=== PATIENT | female | born 1945 | race Caucasian/White ===

== ENCOUNTER → 2025-05-26 11:20 | Outpatient (REF) | payer OTHER, MEDICARE, SELFPAY | LOC: RAD 11:20 | PROVIDERS: ATTENDING PHYSICIAN Surgery; FAMILY PHYSICIAN Internal Medicine | DX: R31.9 Hematuria, unspecified (principal) | CPT/HCPCS: 74178; Q9967 ==

== ENCOUNTER 2025-08-20 09:19 | Inpatient (IN) | payer MEDICARE, OTHER, SELFPAY ==
[2025-08-20] VITALS (57 sets, daily range): BP systolic 80–130; BP diastolic 43–100; BMI 24.9
--- NOTE | 2025-08-20 06:49 | ED.GENMED ---
History of Present Illness
General
Chief Complaint: Fever
Source: ambulance crew
Time Seen by Provider: 08/20/25 06:47
History of Present Illness
History of Present Illness:
This patient is an 79-year-old female presents emergency department via EMS after staff in the morning at the [facility] noted that patient appeared to be altered. Upon their arrival, patient was noted to be having rigors, associated with a temp
of 104.2, hypoxia to 90%, tachycardia at 140, with a blood pressure of 100/70. Patient was given 300 cc of normal saline on transport and 6 L of oxygen was applied with relief of her hypoxia. History is unavailable from patient given her condition
and dementia.
Past History
Past History
ED Past Medical History: HTN and Other (Dementia, DVT)
Social History
Tobacco: Other (Unable to obtain)
Alcohol: Other (Unable to obtain)
Living: [facility]
Employment: Not employed
Phy Exam
Physical Exam
Physical Exam:
GENERAL: Awake but eyes closed, in no apparent distress
EYE: pupils equal and reactive, no photophobia
NECK: Supple, no significant adenopathy.
ENT: o/p clr, mm extremely dry, no stridor, no drool
CARDIAC: Regular rate and rhythm, tachycardic.
LUNGS: Equal breath sounds bilaterally, no acute respiratory distress, no wheezes/rales, rhonchi noted bilaterally
ABDOMEN: Soft, without focal tenderness, no r/g
NEUROLOGICAL: Awake but eyes closed, uncooperative with formal neurological exam, no facial droop
SKIN: Warm and dry, skin intact.
MUSCULOSKELETAL: No edema, well perfused.
PSYCH: Nonverbal
Sepsis
Sepsis Screening
Sepsis Assessment: Severe Sepsis
Sepsis Screening: Hypotension
Sepsis Screen
Sepsis Screen: Severe Sepsis
Date: 08/24/25
Time: 01:06
Course
Orders/Labs/Results
Orders:
Orders
08/20/25 06:47
Cardiac Monitoring- Treatment ONCE
0.9% Sodium Chloride 1000 ml [Nss] 1,000 ml IV BOLUS
Acetaminophen [Tylenol/Feverall] 650 mg RECTAL NOW STA
O2 Therapy [RESP] Urgent
Nasal Cannula Liter Flow: 2 LPM
Titrate/Wean O2 to maintain O2 sat greater than (%): 95
Pulse Ox/cont/shift [RESP] Urgent
Quantity: 1
08/20/25 06:48
Electrocardiogram (*1) Urgent
Reason for Study: Other
Other Reason for Exam: sepsis
EKG- Treatment ONCE
CR Chest - 2 Views Urgent
Comment:
Reason For Exam: fever, hypoxia
08/20/25 06:57
COVID-19 Antigen Urgent
Source: Nasal Swab
Complete Blood Count/With Diff Urgent
Comprehensive Metabolic Panel Urgent
Lactic Acid Q4H
Comment: CANCEL 2nd LACTIC ACID IF 1st LACTIC ACID IS LESS THAN 2
Magnesium Urgent
Comment: ADD ON
Phosphorus Urgent
Comment: ADD ON
Troponin I Urgent
Urinalysis Reflex To Culture Urgent
Date Specimen was Collected: 08/20/25
Time Specimen was Collected: 06:55
Urine Microscopic Reflex Cult Urgent
Blood Culture Q30M
LUI Source: Blood/Venous
Specimen Description:
Influenza A+B Rapid Molecular Urgent
LUI Source: Nasal Swab
Specimen Description:
Urine Culture Urgent
LUI Source: U
Specimen Description:
Date Specimen was Collected: 08/20/25
Time Specimen was Collected: 06:55
08/20/25 07:11
Blood Culture Q30M
LUI Source: Blood/Venous
Specimen Description:
08/20/25 07:15
0.9% Sodium Chloride 1000 ml [Nss] 1,000 ml IV BOLUS
08/20/25 08:29
CefTRIAXone [Rocephin] 1,000 mg IV NOW STA
08/20/25 08:54
Admit/Transfer Patient As Directed
Co-Sign Provider:
Level of Care: Inpatient admission
Assign to:: ICU
Physician / Group: Hospitalists
Diagnosis: Severe sepsis
Reason for Hospitalization: Severe sepsis
Expected length of stay greater than two midnights?: Yes
ELOS- Estimated Length of Stay in days: 3
I certify the patient meets the requirements for IP care: Yes
08/20/25 08:57
PRN Pain Medication Management As Directed
May give lesser potent ordered pain med per pt: Yes
preference::
Protocol:: Medication orders for pain may be administered in a
manner that supports deferring to patient preference
when the pt is:
- Requesting an ordered lesser potent pain medication.
Least to most potent pain medications are defined
as: acetaminophen < NSAID < tramadol < opioids
(morphine, oxycodone, hydromorphone).
- Requesting a lesser dose of the same medication IF
ORDERED.
- Requesting a less intrusive route of administration
if both routes are prescribed by the provider (PO <
IV).
08/20/25 09:00
Abdomen/Pelvis w/wo Contrast CT [CT Abd/pelvis W/wo Iv Cont] Urgent
Comment:
Reason For Exam: Urosepsis
08/20/25 09:01
Code Status As Directed
Resuscitation Status: Full Code
08/20/25 Lunch
NPO
Allow oral meds: No
Allow clear liquids: Sips of Clears
08/20/25 10:31
Acetaminophen [Tylenol/Feverall] 650 mg RECTAL Q4HPRN PRN
Acetaminophen [Tylenol] 650 mg PO Q4HPRN PRN
Acetaminophen [Tylenol] 650 mg PO Q4HPRN PRN fever
Acetaminophen [Tylenol] 650 mg PO Q6HPRN PRN mild pain
08/20/25 10:31
Activity As Directed
Activity Level: As Tolerated
Intake/ Output As Directed
Frequency: Per unit guidelines
Vital Signs As Directed
Frequency: Per unit guidelines
Weight As Directed
Frequency: Daily
O2 Therapy [RESP] Routine
Nasal Cannula Liter Flow: 4 LPM
Titrate/Wean O2 to maintain O2 sat greater than (%): 92
08/20/25 11:19
Lactic Acid Q4H
Comment: repeat q4 hours x 4 or until less than 2 mmol/L
08/20/25 11:35
Arterial Blood Gas Urgent
%Oxygen/Room Air: room air
08/20/25 20:00
Apixaban [Eliquis] 2.5 mg PO BID
Abnormal Lab Results
08/20/25
06:57
MCH 26.7 L pg
(27.0-31.0)
MCHC 31.9 L g/dL
(33.0-37.0)
RDW 15.1 H %
(11.5-14.5)
MPV 10.5 H fL
(7.4-10.4)
Abs Immat Gran (auto) 0.1 H 10^3/uL
(0-0.05)
Absolute Neuts (auto) 10.1 H 10^3/uL
(1.4-6.5)
Absolute Lymphs (auto) 0.5 L 10^3/uL
(1.2-3.4)
Absolute Monos (auto) 0.0 L 10^3/uL
(0.1-0.6)
Immature Gran % 0.7 H %
(0-0.5)
Neutrophils % 94.2 H %
(42.2-75.2)
Lymphocytes % 4.5 L %
(20.5-51.1)
Monocytes % 0.4 L %
(1.7-9.3)
Chloride 115 H mmol/L
(98-107)
Carbon Dioxide 16 L mmol/L
(22-30)
BUN 19 H mg/dl
(7-17)
Glucose 130 H mg/dl
(70-99)
Lactic Acid 7.1 H* mmol/L
(0.7-2.0)
Total Bilirubin 1.4 H mg/dl
(0.2-1.3)
AST 48 H U/L
(14-36)
Troponin I 0.201 H* ng/ml
Total Protein 6.2 L g/dl
(6.3-8.2)
Albumin 2.9 L g/dl
(3.5-5.0)
Ur Occult Blood Reflex 4+ A
(Negative)
Urine Nitrite (Reflex) Positive A
(Negative)
Urine Urobilinogen 2+ A
(Neg - 1+)
Leukocyte Esterase Rfl 3+ A
(Negative)
Urine WBC (Reflex) >100 A /HPF
(0-5)
Urine Albumin (Reflex) 3+ A
(Neg - Trace)
08/20/25 06:57
08/20/25 06:57
Vital Signs
Initial and Last Documented VS:
Initial Vital Signs
Temp Pulse Resp BP Pulse Ox
104.3 F H 144 27 107/66 91
08/20/25 06:41 08/20/25 06:41 08/20/25 06:41 08/20/25 06:41 08/20/25 06:41
Last Documented Vital Signs
Temp Pulse Resp BP Pulse Ox
98.2 F 80 22 116/71 94
08/23/25 23:24 08/23/25 23:24 08/23/25 23:24 08/23/25 23:24 08/23/25 23:24
*Pulse Oximetry
Patient hypoxic: no
*Critical Care Note
Total Time (30-74mins, 75-104mins- exclusive of procedures): 35
Update Note
Update Note:
Patient presents to the Emergency Department with __altered mental status
Number and Complexity of Problems Addressed at the Encounter
� Chronic conditions affecting care:
� Acute Exacerbation and/or Progression of Chronic Illness:
� Differential Diagnosis includes: But not limited to electrolyte disorder, sepsis, UTI, pneumonia, COVID, flu, dehydration, etc. etc.
Amount and/or Complexity of Data to be Reviewed and Analyzed
� I performed an independent evaluation of and my interpretation is:
EKG:read by me, afib with rvr, nonspec T wave anl, RBBB
CT:
Xrays:cxr read by me nad
Laboratory Studies:covid/flu negative, wbc nl, L shift noted, markedly elevated alctic acid, JONATHAN, nonspec trop evelatino (likley demand ischemia)
Other:
� Review of other/old records reveals: snf records reviewed by me at bedside
� Clinical information was obtained by an independent historian: Paramedics who are at bedside
� Prescriptions/Medications Considered but not given:
� Further testing considered but not performed:
Risk of Complications and/or Morbidity or Mortality of Patient Management
� Social determinants of health affecting care:
� Discussion with other providers (PCP, Hospitalists, Consultants, etc):
� Escalation of care including admission/observation vs risk of discharge considered: 8:30 AM repeat assessment, systolic blood pressure 102, MAP 80, IV fluids running. Workup consistent with urosepsis, IV antibiotics started,
hospitalist made aware.
ED Attending Note
-
Portions of this chart may have been created with voice recognition software.� Occasional wrong word or��sound alike� substitutions may have occurred due to the inherent limitations of voice recognition software.
Discharge Plan
Departure
Patient Disposition: Admit
Date of Disposition: 08/20/25
Time of Disposition: 08:31
Presentation/result/management discussed w/ accepting MD/DO: Hospitalist
Condition: Fair
Discharge Problem:
urosepsis
Interventions
Interventions:
*Risk Screen - Suicide Last Done: 08/20/25 06:41
*General Assessment Last Done: 08/20/25 06:41
*Neglect/Abuse Screening Last Done: 08/20/25 06:41
*ED- Fall Risk Assessment Last Done: 08/20/25 06:41
*ED Influenza Vaccine History Last Done: 08/20/25 06:41
*Nursing Disposition Last Done: 08/20/25 10:39
ED- Neurological Assessment Last Done: 08/20/25 07:41
ED-Skin Assessment Last Done: 08/20/25 07:41
Discharge Date and Time
Discharge Date/Time: 08/20/25 10:40
[2025-08-20] MEDS: TYLENOL/FEVERALL 650 MG RECTAL (07:00)
[2025-08-20] MEDS: NSS 1000 IV ×2 (07:02→07:27)
[2025-08-20 07:26] LABS: Hematocrit 42.6 % (37.0-47.0); Hemoglobin 13.6 g/dL (12.0-16.0); Mean Corp Hgb Conc. 31.9 g/dL (33.0-37.0); Mean Corpuscular Volume 83.7 fL (81.0-99.0); Platelet Count 324 10^3/uL (130-400); Red Cell Dist. Width 15.1 % (11.5-14.5)
[2025-08-20 07:35] LABS: Urine Character Cloudy (Clear)
[2025-08-20 07:36] LABS: AST (SGOT) 48 U/L (14-36); Albumin 2.9 g/dl (3.5-5.0); Alkaline Phosphatase 77 U/L (38-126); Blood Urea Nitrogen 19 mg/dl (7-17); Calcium 8.4 mg/dl (8.4-10.2); Carbon Dioxide 16 mmol/L (22-30); Chloride 115 mmol/L (98-107); Glucose 130 mg/dl (70-99); Potassium 3.8 mmol/L (3.5-5.1); Sodium 144 mmol/L (135-145); Total Protein 6.2 g/dl (6.3-8.2); eGFR > 60.00
[2025-08-20 07:37] LABS: COVID-19 Antigen Negative (Negative)
[2025-08-20 07:55] LABS: ALT (SGPT) 29 U/L (0-35)
[2025-08-20 08:01] LABS: Nucleated Red Blood Cells % 0.3 %
[2025-08-20 08:03] LABS: Troponin I 0.201 ng/ml
[2025-08-20 08:18] LABS: Urine White Cell >100 /HPF (0-5)
[2025-08-20] MEDS: ROCEPHIN 1000 MG IV (08:35)
--- NOTE | 2025-08-20 09:00 | CM ---
Patient seen at bedside in ED. Patient with Dementia from [facility]. CM called and left for admissions requesting information about status and prior level of functioning. Patient appears to have been at the facility since at least 07/11.
Awaiting clarification from facility, plan is for patient to return to SNF when medically appropriate. CM will continue to follow for discharge planning needs.
Plan; return to SNF when medically appropriate.
--- NOTE | 2025-08-20 09:21 | HPS.HSE ---
Addendum entered and electronically signed by Nitza Barrios MD 08/20/25 13:26:
Correction Hep Subc dvt ppx for now, to change back to Eliquis when able to tolerate PO
Addendum entered and electronically signed by Nitza Barrios MD 08/20/25 13:12:
I interviewed and examined the patient. Discussed with Dr. Sen and agree with findings and plan as documented in note with exceptions/additions as follows:
79F Citizen Of [place] Dementia nonverbal at baseline, pafib on Eliquis, hx DVT/PE, from [facility], sent in for evaluation AMS/unresponsiveness. Eval concerning for hypoxia and severe sepsis vs septic shock 2/2 urinary tract infection likely d/t known
renal calculi. Patient unable to contribute any hx. All of history from records report. Discussed with patient's legal guardian [place] and confirmed Full Coded status.
Physical Exam
General: No Apparent Distress and Comfortable
HEENT: PERRLA; No Moist mucous membranes
Respiratory: Clear to auscultation b/l, requiring 6L nasa cannula
Cardiac: S1/S2, Regular Rhythm and Tachycardia; No Murmur, Rub or Gallop
GI: Soft, Non Tender, Non Distended and Normal Bowel Sounds
Musculoskeletal: No Clubbing, No Cyanosis and No Edema
Skin: Warm and Dry
Neuro: Lethargic difficult to arouse, nonverbal, responds to noxious stimuli, eye tracking
Psych: Calm
# Septic shock vs Severe Sepsis 2/2 UTI
# History of bilateral hydroureteronephrosis with right-sided nephrolithiasis-
#Severe Lactic Acidosis
# Acute hypoxic respiratory failure
#Dementia
ICU admit
Levopressor prn goal MAP 65
Trend Lactate
IVF support
Empiric Zosyn
Follow cultures
NPO for now, including oral meds, pending improvement in mental status
Hep gtt for afib while strict NPO
Oxygen supplementation as necessary.
Urology and associate biological sales eval appreciated
Monitor for delirium, non-violent restraints prn, consider precedex gtt if significant agitation develops
Total Critical Care Time__55___ minutes. I was immediately available to the patient and staff. I personally examined, reviewed labs, diagnostic images/reports, interpretations, treatment plans, discussed patient care with other providers and
family or caregivers (if patient is unable to make decisions), entered orders as appropriate and documented the medical record.
Original Note:
Family Physician
-
Family Physician: Stephany Davis, [facility]
Chief Complaint
-
Acute change in mental status
History of Present Illness
79-year-old, primarily non-Turkish speaking (Citizen [place]) female, nonverbal at baseline with history of dementia, A-fib with RVR, DVT known right renal calculus with mild hydroureteronephrosis is brought to the ER by EMS from [facility]
facility-[facility] for evaluation of acute onset change in the mental status. I called the [facility], and the nurse reports finding the patient in confusion and baseline mental status change after which she called the EMS. Upon arrival in
the ER, she was noted to have rigors with a temperature of 104, blood pressure of 100/70, tachycardia at 140, tachypnea 24, 90% on room air.
In the ER, patient was given 6 L nasal cannula flow, and 2 L of NS boluses along with Tylenol and ceftriaxone. Currently patient is tachycardic, tachypneic with a temperature of 104.3, satting 97% on 6 L nasal cannula flow with a blood pressure of
89/64, MAP at 72.
Unable to obtain much history from the patient.
Medical History
Past Medical History
Past Medical History: Reports Other (A-fib with RVR, on anticoagulation, DVT, dementia.)
Past Surgical History: Reports Other
Social History
Unable to obtain full social history at this time due to: Other (Patient is nonverbal, has language barrier and demented.)
Family History
Family History: Not pertinent
Allergies / Home Medications
Allergies reflects when Allergies were last updated in [employer]
Home Medications with original date entered in [employer]
Allergy/Medication List:
Allergies
Allergy/AdvReac Type Severity Reaction Status Date / Time
No Known Allergies Allergy Unverified 06/30/23 11:13
Home Medications
acetaminophen 325 mg tablet 650 mg PO Q4HPRN PRN fever 06/30/23
acetaminophen 325 mg tablet (Tylenol) 650 mg PO Q6HPRN PRN mild pain 08/20/25
apixaban 2.5 mg tablet (Eliquis) 2.5 mg PO BID 08/20/25
Review of Systems
-
Unable to obtain full review of systems at this time due to: Other (Dementia, acuity, language barrier and nonverbal.)
Physical Exam
Vital Signs
Vital Signs
Temp Pulse Resp BP Pulse Ox
104.3 F H 116 25 89/64 97
08/20/25 06:41 08/20/25 08:30 08/20/25 08:30 08/20/25 08:30 08/20/25 08:30
Physical Exam
General: No Apparent Distress and Comfortable
HEENT: PERRLA; No Moist mucous membranes
Respiratory: Clear (In bilateral upper lobes) and Rhonchi (In bilateral lower lobes, expiratory.); No Wheezes or Rales
Cardiac: S1/S2, Regular Rhythm and Tachycardia; No Murmur, Rub or Gallop
GI: Soft, Non Tender, Non Distended and Normal Bowel Sounds
Genito-urinary: Deferred by me
Musculoskeletal: No Clubbing, No Cyanosis and No Edema
Skin: Warm and Dry
Neuro: No Awake, Alert or Oriented
Psych: Calm
Laboratory Results
-
08/20/25 06:57
08/20/25 06:57
Laboratory Results
Lactic Acid 7.1 mmol/L (0.7-2.0) H* 08/20/25 06:57
Total Bilirubin 1.4 mg/dl (0.2-1.3) H 08/20/25 06:57
AST 48 U/L (14-36) H 08/20/25 06:57
ALT 29 U/L (0-35) 08/20/25 06:57
Alkaline Phosphatase 77 U/L (38-126) 08/20/25 06:57
Troponin I 0.201 ng/ml H* 08/20/25 06:57
Data Reviewed
-
CT Scan: Other (Pending)
Lab Data: Labs Reviewed by me, Discussed with Physician and Discussed with Patient
Old Records: Reviewed
Impression/Plan
-
IMPRESSION: 79-year-old primarily non-Turkish speaking, nonverbal female with PMHx significant for dementia, mild hydroureteronephrosis, A-fib,? DVT, on reduced dose Eliquis (unclear) presents to the emergency room from [facility]
([facility]) for evaluation of new onset confusion. Patient is diagnosed to be in sepsis and is admitted to ICU.
PLAN:
# Septic shock-
Hypotensive, tachycardic, tachypneic, fevers of 104.3, lactate levels >4.
Likely secondary to complicated UTI.
No leukocytosis, acidotic with CO2-16. Obtain ABG.
Chest x-ray showed no evidence for pneumonia, mild cardiomegaly noted.
Blood cultures x 2, urine cultures pending.
UA greater than 100 WBCs, nitrites and leukocyte positive.
MAP-holding between 63-70, start the patient on Levophed if MAP less than or equal to 65
ICU consulted, admit the patient to ICU.
Per LTC, patient is a full code.
Started the patient on IV maintenance fluids-NSS@100, and Zosyn.
Follow lactate levels, blood cultures, urine cultures and temperature curve.
Tylenol for fever as needed.
# Acute hypoxic respiratory failure-
Suspect secondary to sepsis
Currently on 6 L nasal cannula flow
Wean off oxygen as tolerated. Acidotic, obtain ABG.
# History of bilateral hydroureteronephrosis with right-sided nephrolithiasis-
Obtain CT abdomen and pelvis with and without contrast.
Urology-patient underwent cystoscopy, negative for any urothelial mass.
CT results Staghorn calculus in the right kidney with suspicion for superimposed infection/proximal right ureteritis. No hydronephrosis.
Consult urology, appreciate inputs
# A-fib with RVR-
Not on any rate control, unclear if this is new.
Currently on reduced dose Eliquis.
Does not meet criteria (age greater than 80, body weight-63, serum creatinine-0.8)
# QTc prolongation on EKG-
QTc at 535.
Avoid QT prolonging agents.
Obtain EKG in the am for QTc prolongation.
# Dementia -
Monitor for ICU delirium, and
Olanzapine HS as needed.
# DVT prophylaxis-
Continue home dose Eliquis.
# CODE STATUS-
Full code.
--- NOTE | 2025-08-20 10:16 | CONS.URO ---
Consultation
-
Date/Time Consultation Requested: 08/20 1014
Date/Time Consultation Performed: 08/20 1016
Requesting Provider: Hospitalist
Performing Provider: Megan
Reason for Consultation: cUTI, non-obstructing large right renal stone
Medical History
History of Present Illness
79F (non-Icelandic speaking) and non-verbal at baseline w/ dementia presents from [facility] w/ change in mental status.
Patient febrile to 104F w/ rigors, tachycardia, tachypnea in ED.
Past Medical History
Past Medical History: Arrhythmia (afib w/ RVR on Eliquis) and Other (DVT, dementia)
Past Surgical History: None
Social History
Unable to obtain full social history at this time due to: Dementia and Acuity
Alcohol: None
Drug: None
Personal: Single
Living: [place]
Family History
Family History: Reviewed & Not Pertinent
Allergies/Home Medications
Allergies
Allergy/AdvReac Type Severity Reaction Status Date / Time
No Known Allergies Allergy Unverified 06/30/23 11:13
Home Medications
�Medication �Instructions �Recorded �Confirmed �Type
acetaminophen 325 mg tablet 650 mg PO Q4HPRN PRN fever 06/30/23 08/20/25 History
acetaminophen 325 mg tablet 650 mg PO Q6HPRN PRN mild pain 08/20/25 08/20/25 History
(Tylenol)
apixaban 2.5 mg tablet (Eliquis) 2.5 mg PO BID 08/20/25 08/20/25 History
Review of Systems
-
Unable to obtain full review of systems at this time due to: Dementia and Acuity
History Source: [facility] and Transfer Record
A 12 point Review of Systems was completed except as noted: Yes
Physical Exam
Vital Signs
Vital Signs
Temp Pulse Resp BP Pulse Ox
104.3 F H 106 31 94/60 95
08/20/25 06:41 08/20/25 09:45 08/20/25 09:45 08/20/25 09:44 08/20/25 09:45
Lab / Testing Results
Laboratory Results
08/20/25 06:57
08/20/25 06:57
Physical Exam
General: Well Developed, Well Nourished and No Apparent Distress
HEENT: Normocephalic and Anicteric
Respiratory: Non Labored Respirations
Cardiac: S1/S2
Breast: Deferred by me
GI: Soft, Non Tender and Non Distended
Rectal: Deferred by Provider
Musculoskeletal: No Edema
Skin: Warm and Dry
Neuro: Sedated and Other (dementia, non-verbal)
Hematologic/Lymphatic: No Lymphadenopathy
Psych: Confused and Apparent Dementia
Assessment / Plan
-
Urosepsis
cUTI w/ ascending right infection
Partial right staghorn stone (stable)
Large right renal cyst (stable)
Of note, patient underwent office cystoscopy (06/17/25) => NO discrete urothelial lesions or bladder tumors - patchy cystitis and trabeculated bladder noted.
CTAP w/wo IV contrast => 4 x 2 cm non-obstructing right partial staghorn stone, suspicion for superimposed infection/proximal right ureteritis. No hydronephrosis.
Small filling defect in the right posterior urinary bladder lumen.
WBC WNL
Cr WNL
UA grossly indicative of UTI
UCx pending
- IV antibiotics pending Cx data
- No uro-surgical intervention indicated for non-obstructing large right renal stone burden
- Recent outpatient cystoscopy in 05/2025 demonstrated no evidence of bladder cancer
D/w Hospital Medicine.
Data Reviewed
-
Total Time Spent with Patient (in minutes): 25
CT Scan: Image personally visualized and interpreted, Report Reviewed by Me and Discussed with Physician
Lab Data: Labs Reviewed and Discussed with Physician
Old Records: Reviewed
--- NOTE | 2025-08-20 10:28 | CON.INTV ---
Consultation
Consultation Request
Date/Time Consultation Requested: 08/20/2025 10:00
Date/Time Consultation Performed: 08/20/2025 10:30
Requesting Provider: Solange Sen MD (Resident)
Performing Provider: Олег Yates DO (Resident); Luis Daniel Donis MD
Reason for Consultation: Septic Shock
Medical History
-
Chief Complaint: Confusion, Altered Mental Status
History of Present Illness:
Heather Lamb is a 79F w/ baseline PMHx of dementia, A/fib, known right renal calculus, and mild hydroureteronephrosis who presented to ED earlier this morning from the [facility] due to acute change in mental status.
Patient had confusion at baseline mental status this morning after which EMS was called by the nursing facility. Per EMS transfer form, patient had a temperature of 104.2, heart rate 145, respiratory rate of 32, BP of 96/65. Upon arrival to the
Emergency Department patient presented with rigors.
ED COURSE
Presented with tachycardia to 140, tachypnea 24, saturation 90% on room air, blood pressure 96/65, temperature 104.
In ER, patient started on 6 L nasal cannula flow, given fluid resuscitation with 2 L of normal saline boluses, 1 dose of ceftriaxone, Tylenol for fever.
WBC 10.7 with neutrophilic predominance.
CMP shows anion gap metabolic acidosis (13) with hyperchloremia. Mild BUN elevation.
Lactic acid 7.1.
Elevated total bilirubin of 1.4. Mild transaminitis AST 48.
Troponin 0.201, EKG showing atrial fibrillation with RVR, RBBB
UA positive for infectious picture. UCX sent. BCx sent.
Patient admitted to the ICU for sepsis, possible septic shock. Additional history is unable to be obtained secondary to altered mental status.
Past Medical History
Past Medical History: Other (dementia, A/fib, known right renal calculus, and mild hydroureteronephrosis)
Family History
Family History: Unable to Obtain
Allergies / Home Medications
Allergies
Allergy/AdvReac Type Severity Reaction Status Date / Time
No Known Allergies Allergy Unverified 06/30/23 11:13
Home Medications
�Medication �Instructions �Recorded �Confirmed �Last Taken �Type
acetaminophen 325 mg tablet 650 mg PO Q4HPRN PRN fever 06/30/23 08/20/25 Unknown History
acetaminophen 325 mg tablet 650 mg PO Q6HPRN PRN mild pain 08/20/25 08/20/25 Unknown History
(Tylenol)
apixaban 2.5 mg tablet (Eliquis) 2.5 mg PO BID 08/20/25 08/20/25 Unknown History
Review of Systems
-
Unable to Obtain full review of systems at this time due to: Dementia and Language Barrier
Vitals / Labs / Diagnostic Testing
Vital Signs
Temp Pulse Resp BP Pulse Ox
104.3 F H 106 31 94/60 95
08/20/25 06:41 08/20/25 09:45 08/20/25 09:45 08/20/25 09:44 08/20/25 09:45
Lab Data
08/20/25 06:57
08/20/25 06:57
Microbiology
08/20/25 06:57 Nasal Swab Influenza Types A & B (ALPHONSE) - Final
Negative for Influenza A & B, NAAT
Negative results must be combined with clinical observations
and patient history.
Nucleic Acid Amplification test (NAAT)performed on the
[employer] platform.
Diagnostic Testing:
CXR (08/20): No acute pulmonary processes within limitations of the provided projections. Cardiomegaly.
CT abdomen pelvis (08/20): Staghorn calculus in the right kidney with suspicion for superimposed infection/proximal right ureteritis. No hydronephrosis. Small filling defect in the right posterior urinary bladder lumen. Large volume stool in the
rectum and distal sigmoid colon suggesting constipation.
Physical Exam
-
HEENT: Normocephalic and Anicteric
Cardiovascular: S1/S2, Regular Rhythm and Other (Tachycardia, warm extremities, no lower extremity edema.)
Respiratory: Clear and Non-Labored Respirations
GI: Soft
Neurology: Other (Somnolent.)
Skin: Warm
Assessment
-
Heather Lamb is a 79F presenting from [facility] w/ a PMHx of dementia, A/fib, known right renal calculus, and mild hydroureteronephrosis who was found to be in a state of altered mental status this morning by correction staff and
presented to the emergency department with a fever of 104 and in septic shock with CT of the abdomen pelvis showing staghorn calculus in the right kidney with suspicion for superimposed infection/right ureteritis as the potential source. Patient was
admitted to the ICU for septic shock.
1. Sepsis 2/2 pyelonephritis superimposed on staghorn calculus and right ureteritis
- Initial Lactate 7.1. Repeat Lactate in 2 hours after initial.
- qSOFA on arrival of 3
- UA positive, CT Abd/Pelv w/ radiographic evidence of staghorn calculus with superimposed infection/ureteritis
- Patient given one dose of Ceftriaxone, and started on Zosyn.
- Follow BCx and UCx. Tailor abx based on sensitivities/bugs.
- Patient given 2L NS in ED. Requirement @ 63kg being 1.9 L. Will transition to maintainence on LR in setting of hyperchloremia.
- Levophed ordered, but not given yet in ED. Goal MAP > 65.
- PRN Tylenol for fever.
2. Anion Gap Metabolic Acidosis
- CO2 16, GAP 13.
- Obtain ABG or VBG.
3. Acute Hypoxic Respiratory Failure
- On 6L NC in ED.
- Obtain ABG.
4. Atrial fibrillation with RVR
- Home med (Eliquis 2.5 mg p.o. twice daily)
- Currently not on rate control medication.
- HR 105 at time of exam.
5. Baseline Dementia
- Worsened altered mental status likely secondary to infection/sepsis (baseline unknown to us)
- Monitor for ICU delirium
- Monitor electrolytes and replete as appropriate
- Environmental hygiene and regular reorientation once awake
Data Reviewed
-
EKG: Tracing personally visualized and interpreted and Report reviewed by me
Radiology: Image personally visualized and interpreted and Report reviewed by me
CT Scan: Image personally visualized and interpreted and Report reviewed by me
Labs: Labs reviewed by me
Critical Care Time (in minutes): 45
[2025-08-20 11:09] LABS: Glucose - Point of Care 108 mg/dl (70-99)
[2025-08-20] MEDS: ZOSYN 50 IV ×3 (11:18→22:08)
[2025-08-20] MEDS: LR 1000 IV ×2 (11:18→21:10)
[2025-08-20] MEDS: LEVOPHED 250 IV ×2 (11:27→20:21)
[2025-08-20 11:54] LABS: Magnesium 1.8 mg/dl (1.6-2.3)
--- NOTE | 2025-08-20 12:00 | PTCARENOTE ---
Received pt. from ER via stretcher into ICU rm [id number]; pt. max assisted from stretcher to bed. Complete hygiene provided. Baseline dementia; pt. nonverbal; does not follow commands; SR w BBB w parox afib on monitor. Spo2 100% on 4LNC, weaned to 2L
and tolerated. +BS, abd soft/round; NPO d/t mentation. Inc b/b. # 20 R wrist patent, dressing c/d/i; #18 L FA w LR @ 100mL/hr and IV abx; levo gtt initiated to keep MAP >65- see flow sheet. Pt. repositioned per protocol; bed alarm active.
[2025-08-20 12:10] LABS: INR 1.94; PT 22.6 Sec (11.4-14.6)
[2025-08-20 12:10] LABS: B.E. -2.4 mmol/L; HCO3 20.6 mmol/L (21-28); O2 Saturation % 99.2 % (94-98); PCO2 29 mmHg (32-35); PO2 99 mmHg (83-108)
[2025-08-20 12:11] LABS: APTT 37.9 Sec (23.4-35.0)
[2025-08-20] MEDS: MAGNESIUM SULFATE 100 IV (12:42)
--- NOTE | 2025-08-20 14:20 | WOUNDNOTE ---
[facility] RN note: Patient admitted with sepsis, UTI. Patient admitted from [facility].
See H&P for complete history.
PMH: dementia, a fib (Eliquis), DVT/PE.
Wound Location and type/assessment: Patient admitted with: stage 3 linear sacral pressure injury, bilateral sacral/buttocks chafed skin, healing stage 2 pressure injuries. Back stage 2 pressure injury. Blanchable elbows and heels. Upper ear creases
mild red.
Appetite: NPO.
Pressure redistribution devices in place: Centrella Max air bed. Patient is immobile.
Plan: Silicone border foam changed on back. Sacral shaped silicone border foam applied to sacrum after malgorzata care given (patient incontinent of small soft brown stool). Protective elbow and heel foams maintained. Patient turned to R semi side lying
position with help from ALO Laboy. Heels off bed with pillow. t/c SPD and ordered Foot Waffle boots.
Will confirm orders with Dr. Barrios and discussed with ALO Laboy.
Care plan to be updated and will follow as needed.
Note to case management of equipment requested for discharge: Air mattress if not already in place.
Recommend follow up with wound care companion or at wound care center upon discharge.
--- NOTE | 2025-08-20 14:43 | WOUNDNOTE ---
SACRAL/BUTTOCKS (back toward bottom of photo)
[2025-08-20] MEDS: HEPARIN 5000 UNITS SC ×2 (16:06→23:27)
[2025-08-20 16:38] LABS: Troponin I 0.407 ng/ml
[2025-08-20] MEDS: LR 500 IV (16:55)
--- NOTE | 2025-08-20 21:00 | PTCARENOTE ---
Assumed care of patient at 1900. On levo, LR, and 2 liters NC. Nonverbal and unable to follow commands. CPOT scale negative. Incontinent of urine- purewick replaced and CHG bath completed. Will continue to monitor.
[2025-08-20 21:46] LABS: Troponin I 0.324 ng/ml
[2025-08-21] VITALS (61 sets, daily range): BP systolic 87–120; BP diastolic 47–85; BMI 25.0
--- NOTE | 2025-08-21 | PTCARENOTE ---
No changes from previous assessment. Weaned from 2 liters 02 to room air.
[2025-08-21] MEDS: ZOSYN 50 IV ×2 (04:02→10:16)
[2025-08-21 04:12] LABS: ALT (SGPT) 24 U/L (0-35); AST (SGOT) 41 U/L (14-36); Albumin 2.4 g/dl (3.5-5.0); Alkaline Phosphatase 87 U/L (38-126); Blood Urea Nitrogen 13 mg/dl (7-17); Calcium 8.1 mg/dl (8.4-10.2); Carbon Dioxide 25 mmol/L (22-30); Chloride 116 mmol/L (98-107); Estimated Creatinine Clearance 61 ml/min; Glucose 113 mg/dl (70-99); Magnesium 2.1 mg/dl (1.6-2.3); Potassium 3.7 mmol/L (3.5-5.1); Sodium 146 mmol/L (135-145); Total Protein 5.2 g/dl (6.3-8.2); eGFR > 60.00
--- NOTE | 2025-08-21 05:09 | PTCARENOTE ---
No changes from previous assessment. Continuing to wean levo- see med titration worklist for details.
[2025-08-21 05:32] LABS: Hematocrit 34.3 % (37.0-47.0); Hemoglobin 11.0 g/dL (12.0-16.0); Mean Corp Hgb Conc. 32.1 g/dL (33.0-37.0); Mean Corpuscular Volume 84.3 fL (81.0-99.0); Platelet Count 343 10^3/uL (130-400); Red Cell Dist. Width 15.2 % (11.5-14.5)
[2025-08-21] MEDS: LR 1000 IV ×2 (06:23→18:34)
--- NOTE | 2025-08-21 06:50 | W.PN.HOSP.TC ---
Today's Communication/Plan
-
ok to downgrade if remains stable of pressor support
cont empiric abx zosyn, repeat blood cultures
cont hep subq dvt ppx for now, switch to Eliquis when able to tolerate PO
Speech eval
Assessment / Plan
Assessment / Plan
Physical Exam
General: No Apparent Distress and Comfortable
HEENT: PERRLA; No Moist mucous membranes
Respiratory: Clear to auscultation b/l, stable respiratory status on room air
Cardiac: S1/S2, Regular Rhythm and Tachycardia; No Murmur, Rub or Gallop
GI: Soft, Non Tender, Non Distended and Normal Bowel Sounds
Musculoskeletal: No Clubbing, No Cyanosis and No Edema
Skin: Warm and Dry
Neuro: responds to physical stimuli, nonverbal noncommunicative
Psych: Calm
79F [place] Dementia nonverbal at baseline, pafib on Eliquis, hx DVT/PE, from [facility], sent in for evaluation AMS/unresponsiveness. Eval concerning for hypoxia and septic shock 2/2 urinary tract infection likely d/t known renal calculi.
Patient unable to contribute any hx. All of history from records report. Discussed with patient's legal guardian [place] and confirmed Full Coded status.
# Septic shock-
Hypotensive, tachycardic, tachypneic, fevers of 104.3, lactate levels >4.
Likely secondary to complicated UTI.
ICU admit
Chest x-ray showed no evidence for pneumonia, mild cardiomegaly noted.
Blood cultures x 2, urine cultures prelim pos follow, repeat Blood cultures
UA greater than 100 WBCs, nitrites and leukocyte positive.
empiric zosyn
wean off pressor support as tolerated, ok to downgrade if remains stable off pressors
# Acute hypoxic respiratory failure Resolved
Suspect secondary to sepsis
weaned off 6 L nasal cannula flow to room air
# History of bilateral hydroureteronephrosis with right-sided nephrolithiasis-
Obtain CT abdomen and pelvis with and without contrast.
Urology-patient underwent cystoscopy, negative for any urothelial mass.
CT results Staghorn calculus in the right kidney with suspicion for superimposed infection/proximal right ureteritis. No hydronephrosis.
Consult urology appreciated
#paroxysmal afib
# A-fib with RVR
currently sinus janine
# QTc prolongation on EKG-
QTc at 535.
Avoid QT prolonging agents.
repeat EKG
# Dementia -
Monitor for delirium, and ing
restraints prn
# DVT prophylaxis-
subc hep for now eventual restart home Eliquis when tolerating PO
# CODE STATUS-
Full code.
Total Critical Care Time__50___ minutes. I was immediately available to the patient and staff. I personally examined, reviewed labs, diagnostic images/reports, interpretations, treatment plans, discussed patient care with other providers and
legal guardian [place], entered orders as appropriate and documented the medical record.
Anticipated Discharge: 24 - 48 hours
Subjective/Interval History
-
Date of Service: August 21, 2025
remains noncommunicative, responsive to physical stimuli
Objective Data
-
Labs:
Laboratory Results
08/21/25
03:25
WBC Pending
Hgb 11.0 L
Hct 34.3 L
Plt Count 343
Sodium 146 H
Potassium 3.7
Chloride 116 H
Carbon Dioxide 25
BUN 13
Creatinine 0.6
Glucose 113 H
Calcium 8.1 L
Total Bilirubin 0.9
AST 41 H
ALT 24
Alkaline Phosphatase 87
Vital Signs:
Vital Signs
Temp Pulse Resp BP Pulse Ox
98.3 F 57 23 107/56 96
08/21/25 03:12 08/21/25 06:15 08/21/25 06:15 08/21/25 06:15 08/21/25 06:15
I&O
08/19/25 08/20/25 08/21/25
06:59 06:59 06:59
Intake Total 2927.6 / 2927.6
Output Total 900 / 900
Balance 2026.6 / 2026.
--- NOTE | 2025-08-21 08:00 | PTCARENOTE ---
Received pt @ change of shift. Pt. awake/alert; not oriented d/t baseline dementia; nonverbal. SR/sinus arrhythmia w 1st degree AVB on monitor. SpO2 94% on RA. Inc b/b. Purewick in place draining viviana urine. Complete hygiene provided and
repositioned per protocol. #18 L FA w IVF and levo gtt- see flow sheet. Bed alarm active, safe environment maintained.
[2025-08-21] MEDS: HEPARIN 5000 UNITS SC (08:25)
[2025-08-21 08:56] LABS: Nucleated Red Blood Cells % 0 %
--- NOTE | 2025-08-21 11:51 | PTCARENOTE ---
Levo gtt off @ 0809- see flow sheet; remains off and MAP >65. Pt. more alert today; HORSE RACE STARTER to bedside and diet advanced per recommendations. Hygiene provided for prn inc; repositioned per protocol. BC drawn x2 and EKG obtained this AM per orders.
Safe environment maintained.
--- NOTE | 2025-08-21 12:56 | PTOTSP ---
Dysphagia Evaluation:
Pt was made NPO due presenting w/ altered mental status. Pt presents w/ risk for aspiration/dysphagia given fluctuating mental status and PMH of dementia. However, pt has a clear CXR, no overt s/sx of aspiration at the bedside, and baseline diet as
Mechanical Soft, Thins. ST recommending IDDSI 6 Soft & Bite Size, Thins diet only when alert and w/ full assistance.
Recommendations:
1. IDDSI 6 Soft and Bite Size, Thins
2. Medications as best tolerated
3. Full supervision/assistance w/ meals
4. Feed only when awake/alert given fluctuations in mental status and PMH of dementia
5. Strategies: Single sips/small bites, slow rate, alternating liquid washes
6. ST will F/U to observe diet-level tolerance, likely brief.
--- NOTE | 2025-08-21 13:53 | W.PN.INTV ---
Today's Communication / Plan
Recommendations
- Weaned off Levophed. Continue gentle hydration with Ringer lactate
- Discontinue Zosyn, initiate ertapenem, infectious disease consult
- Patient stable for transfer out of ICU
- Sweep Molder service will sign off, please call as needed
Assessment
-
Heather Lamb is a 79F presenting from [facility] w/ a PMx of dementia, A/fib, known right renal calculus, and mild hydroureteronephrosis who was found to be in a state of altered mental status this morning by long-term staff and
presented to the emergency department with a fever of 104 and in septic shock with CT of the abdomen pelvis showing staghorn calculus in the right kidney with suspicion for superimposed infection/right ureteritis as the potential source. Patient was
admitted to the ICU for septic shock.
Overview 08/21: Patient has been off pressors now, current MAP of 75. Current infusions Ringer lactate at 60 mL/h. Patient saturating mid 90s on room air, no respiratory distress noted.
#1. Septic shock with UTI with lactic acidosis
- Staghorn calculi noted on imaging, urology service on case
- Status post 2 L normal saline bolus in the emergency room, continue maintenance fluids with Ringer lactate, off Levophed now, normal MAP
- Lactate has normalized, blood cultures and urine culture positive for gram-negative bacilli, concern for ESBL
- In view of suspected ESBL and bacteremia, discontinue Zosyn and initiate ertapenem, requested infectious disease consultation for further input
#2. Atelectasis.
- Saturating well on room air, not requiring supplemental oxygen, no cough or shortness of breath reported
- Incentive spirometry, increase activity as tolerated, PT/OT.
Other medical diagnoses:
- Chronic A fib. Rate is around 100, monitor on tele monitoring. Eliquis resumed
- Dementia
Critical Care time 35 mins -- The patient is admitted for acute critical illness for the treatment of vital organ failure and/or prevention of further life-threatening conditions. Total care includes time spent in review of history, physical exam,
medications, hemodynamic/ventilator parameters, laboratory data, imaging and discussion with house staff, pharmacy, respiratory therapy, communications agent, and nursing.
Subjective Dataa
Subjective Data
Date of Service:
Date of Service: August 21, 2025
Subjective:
Patient comfortably lying in bed in no acute distress.
Review of Systems
Genitourinary: Other (No new symptoms reported.)
Objective Data
Data Reviewed
Vital Signs / I&O / Oxygen:
Vital Signs
Temp Pulse Resp BP Pulse Ox
97.7 F 63 13 97/56 92
08/21/25 10:49 08/21/25 13:15 08/21/25 13:15 08/21/25 13:15 08/21/25 09:00
Intake and Output
08/20/25 08/21/25 08/22/25
06:59 06:59 06:59
Intake Total 2927.6 / 3035.1 845.0 / 845.0
Output Total 900 / 900
Balance 2027.6 / 2135.1 845.0 / 845.0
SaO2 92
Nasal Cannula flow liters per 2
minute
Physical Exam
General: Comfortable
HEENT: Normocephalic
Cardiovascular: S1-S2
Respiratory: Clear
GI: Soft and Non Distended
Neurology: Awake and Alert
Skin: Warm
Labs/Micro/Reports
Lab Data
08/21/25 03:25
08/21/25 03:25
Microbiology
08/20/25 06:57 Urine Urine Culture - Preliminary
Gram negative bacilli
08/20/25 07:11 Blood/Venous Blood Culture - Preliminary
Positive culture in progress
08/20/25 07:11 Blood/Venous Gram Stain - Preliminary
08/20/25 06:57 Blood/Venous Blood Culture - Preliminary
Escherichia coli
Proteus species
08/20/25 06:57 Blood/Venous Gram Stain - Preliminary
08/20/25 06:57 Nasal Swab Influenza Types A & B (ALPHONSE) - Final
Negative for Influenza A & B, NAAT
Negative results must be combined with clinical observations
and patient history.
Nucleic Acid Amplification test (NAAT)performed on the
[employer] platform.
--- NOTE | 2025-08-21 13:53 | CON.ID ---
Consultation
-
Date/Time Consultation Requested: 08/21/25 13:50
Date/Time Consultation Performed: 08/21/25 13:54
Requesting Provider: Dr Donis
Performing Provider: Dr Ascencio
Reason for Consultation: ESBL bacteremia
Chief Complaint / Past History
Chief Complaint
AMS/nonresponsiveness
History of Present Illness
Ms Lamb is an 79 year old female with dementia - nonverbal at baseline referred here for altered mental status, patient is unable to provide history thus it is obtained from chart review.
On arrival she was febrile to 104.3, bp initially hypotensive requiring levophed to a peak of 8 mcg/min - now weaned off, wbc intially 10.7 now 33.7, hgb 11.0, plt 343, L shift present on arrival and persisted, na 146, cr 0.6, lactic acid 7.1 on
arival rapidly clearing to the 2s and now normalized, UA >100 wbc/hpf, covid ag negative, urine culture with 100K GNR and blood cultures with E coli and proteus, the CTX-M reistane gene was noted by PCR, she was initially on zosyn, this has now been
changed to ertapenem, repeat blood cultures x2 are in progress. She has a right sided staghorn calculus that was assessed by urology and there is no plan for intervention. ID is consulted for assistance with management.
Past History
Additional Past Medical History:
dementia, A/fib, known right renal calculus, and mild hydroureteronephrosis
Past Surgical History: None
Allergy History:
No Known Allergies Allergy (Unverified 06/30/23 11:13)
Medications Reviewed: Yes
Social History
Tobacco: Other (unable to obtain social history due to condition of the patient)
Family History
Family History: Not Pertinent
Review of Systems
Review of Systems
unable to obtain due to the condition of the patient
Vital Signs
Temp Pulse Resp BP Pulse Ox
97.7 F 63 13 97/56 92
08/21/25 10:49 08/21/25 13:15 08/21/25 13:15 08/21/25 13:15 08/21/25 09:00
Physical Exam
Physical Exam
Constitutional: No Acute Distress
Cardiovascular: Regular Rate and S1/S2; Negative Murmur or Rub
Pulmonary: Clear and Symmetric; Negative Wheezes, Rales or Rhonchi
Gastrointestinal: Soft, Non Tender, Non Distended and Normal Bowel Sounds
Genito-Urinary: Negative Suprapubic Tenderness or CVA Tenderness
Skin: Warm and Dry; Negative Rash or Jaundice
Lab / Diagnostic Study Results
08/21/25 03:25
08/21/25 03:25
Abs Immat Gran (auto) 0.6 10^3/uL (0-0.05) H 08/21/25 03:25
Absolute Neuts (auto) 29.1 10^3/uL (1.4-6.5) H 08/21/25 03:25
Absolute Lymphs (auto) 2.5 10^3/uL (1.2-3.4) 08/21/25 03:25
Absolute Monos (auto) 1.4 10^3/uL (0.1-0.6) H 08/21/25 03:25
Absolute Basos (auto) 0.1 10^3/uL (0-0.2) 08/21/25 03:25
Immature Gran % 1.7 % (0-0.5) H 08/21/25 03:25
Neutrophils % 86.4 % (42.2-75.2) H 08/21/25 03:25
Lymphocytes % 7.3 % (20.5-51.1) L 08/21/25 03:25
Monocytes % 4.3 % (1.7-9.3) 08/21/25 03:25
Eosinophils % 0.1 % (0-6) 08/21/25 03:25
Basophils % 0.2 % (0-2) 08/21/25 03:25
PT 22.6 Sec (11.4-14.6) H 08/20/25 11:19
INR 1.94 08/20/25 11:19
Lactic Acid 1.3 mmol/L (0.7-2.0) 08/21/25 01:04
Ur Squamous Epith Cells /LPF (Few) 08/20/25 06:57
Microbiology Results
Micro:
08/20/25 06:57 Urine Culture - Preliminary
Urine Gram negative bacilli
08/20/25 07:11 Blood Culture - Preliminary
Blood/Venous Positive culture in progress
Gram Stain - Preliminary
08/20/25 06:57 Blood Culture - Preliminary
Blood/Venous Escherichia coli
Proteus species
Gram Stain - Preliminary
08/21/25 10:44 Blood Culture - Pending
Blood/Venous
08/21/25 10:34 Blood Culture - Pending
Blood/Venous
08/20/25 12:40 MRSA Screen - Pending
Nose
08/20/25 06:57 Influenza Types A & B (ALPHONSE) - Final
Nasal Swab Negative for Influenza A & B, NAAT
Negative results must be combined with clinical observations
and patient history.
Nucleic Acid Amplification test (NAAT)performed on the
[employer] platform.
Assessment / Plan
Complicated UTI due to ESBL organism
- unclear at this time is E coli or Proteus is forming the ESBL
- follow up repeat blood cultures
- agree with ertapenem
- no plans for intervention on the staghorn calculus
[2025-08-21] MEDS: INVANZ 60 MG IV (14:01)
--- NOTE | 2025-08-21 14:36 | CM ---
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 Baseline is dementia, alert, non-verbal, was French speaking only. Diet at [place] was mechanical soft with thins. Has a RW and w/ch. speech has recommended diet soft-bite size and thins.
Discharge POC: Return to [facility] to resume correction care.
--- NOTE | 2025-08-21 15:40 | PN.CDI ---
CDI
- -
CDI:
Physician Documentation Request
Admit Date: 08/20/25 09:19
Dear Doctor Denis,
Please review the following and provide your response in the progress notes.
Clinical Indicators:
Laboratory Tests
08/20/25 08/20/25 08/20/25
06:57 16:04 21:09
Troponin I 0.201 H* 0.407 H* 0.324 H*
Based on the above and your clinical assessment, please clarify the appropriate diagnosis, if significant, that supports the above abnormalities and additional evaluation, monitoring and/or treatment rendered:
Non ischemic myocardial injury
Abnormal lab value, clinically insignificant
Other(please specify)
Use of terms such as suspected, likely, concern for, or probable (associated with a specific diagnosis that is being evaluated, monitored, or treated as if it exists) are acceptable and can be coded in the inpatient setting, when documented at the
time of discharge.
Thank you,
Alina Alonzo RN BSN CCDS
CDI Specialist
Please contact via tiger text
Please use your independent medical judgment in providing your response.
--- NOTE | 2025-08-21 15:44 | PN.CDI ---
CDI
- -
CDI:
Physician Documentation Request
Admit Date: 08/20/25 09:19
Dear Doctor Denis,
Please review the following and provide your response in the progress notes.
Clinical Indicators:
08/20/25 14:20 - Wound Note
#Wound Location and type/assessment:
#...Patient admitted with:
#...stage 3 linear sacral pressure injury, bilateral sacral/buttocks chafed skin,
#...healing stage 2 pressure injuries.
#...Back stage 2 pressure injury.
#...Blanchable elbows and heels.
#...Upper ear creases mild red.
Physician documentation of the type and location of wounds is required for compliant documentation. Based on the above clinical findings and your assessment, please provide the following in your progress note:
Yes, Stage 3 Sacral Pressure Injury and Stage 2 Back Pressure Injury, POA
Stage 3 sacrum pressure injury, only
Stage 2 back pressure injury, only
No, pressure injuries
Other(please specify)
1. Location of the ulcer/wound, including laterality.
2. Type (etiology) of ulcer/wound:
- Diabetic ulcer
- Arterial (ischemic) ulcer
- Traumatic wound
- Pressure (decubitus) ulcer
3. For a pressure ulcer, please also include the stage* of the ulcer:
- Stage 1 - Skin intact, non-blanchable redness
- Stage 2 - Partial thickness loss of dermis, includes intact or open blister
- Stage 3 - Full thickness tissue not including bone, tendon or muscle
- Stage 4 - Full thickness tissue loss, including exposed bone, tendon or muscle
- Unstageable - Full thickness loss in which the base of the ulcer is covered by slough (yellow, carty, carrillo, green or brown) and/or eschar (carty, brown or black) in the wound bed.
- Unable to determine
Use of terms such as suspected, likely, concern for, or probable (associated with a specific diagnosis that is being evaluated, monitored, or treated as if it exists) are acceptable and can be coded in the inpatient setting, when documented at the
time of discharge.
Thank you,
Alina Alonzo RN BSN CCDS
CDI Specialist
Please contact via tiger text
Please use your independent medical judgment in providing your response.
*Source: National Pressure Ulcer Advisory Panel (NPUAP)
--- NOTE | 2025-08-21 16:51 | PTCARENOTE ---
No changes in pt assessment from previous. Remains off levo gtt. Safe environment maintained.
--- NOTE | 2025-08-21 19:30 | PTCARENOTE ---
Received pt. at 1900. Pt. currently in bed. Drowsy but arousable. Oriented to self. Otherwise confused and forgetful. Denies pain/discomfort. Afebrile. Heart rhythm sinus. Blood pressure normotensive. Currently on room air. Lungs sound diminished.
PO diet is ordered. Poor appetite. Incontinent of bowel and bladder. Purewick drainage device in place. Skin as documented. Discussed plan of care with patient. Vital signs stable at this time.
[2025-08-21] MEDS: ELIQUIS 5 MG PO (20:46)
[2025-08-22] VITALS (8 sets, daily range): BP systolic 110–150; BP diastolic 68–97; BMI 25.1
[2025-08-22 04:46] LABS: Hematocrit 31.8 % (37.0-47.0); Hemoglobin 10.5 g/dL (12.0-16.0); Mean Corp Hgb Conc. 33.0 g/dL (33.0-37.0); Mean Corpuscular Volume 82.2 fL (81.0-99.0); Platelet Count 267 10^3/uL (130-400); Red Cell Dist. Width 15.1 % (11.5-14.5)
[2025-08-22 04:56] LABS: Blood Urea Nitrogen 11 mg/dl (7-17); Calcium 7.8 mg/dl (8.4-10.2); Carbon Dioxide 24 mmol/L (22-30); Chloride 115 mmol/L (98-107); Estimated Creatinine Clearance 61 ml/min; Glucose 75 mg/dl (70-99); Magnesium 2.0 mg/dl (1.6-2.3); Potassium 3.4 mmol/L (3.5-5.1); Sodium 143 mmol/L (135-145); eGFR > 60.00
--- NOTE | 2025-08-22 07:45 | W.PN.HOSP.TC ---
Today's Communication/Plan
-
Remains stable for downgrade to Tele
Isolation precautions MRSA, ESBL E. Coli Proteus
cont abx as per ID
restraints prn
assisted feeds
aspiration precaution
replete K
Assessment / Plan
Assessment / Plan
Physical Exam
General: No Apparent Distress and Comfortable
HEENT: PERRLA; No Moist mucous membranes
Respiratory: Clear to auscultation b/l, stable respiratory status on room air
Cardiac: S1/S2, Regular Rhythm and Tachycardia; No Murmur, Rub or Gallop
GI: Soft, Non Tender, Non Distended and Normal Bowel Sounds
Musculoskeletal: No Clubbing, No Cyanosis and No Edema
Skin: Warm and Dry
Neuro: Alert Awake Eye tracking nonverbal
Psych: Calm
79F [place] Dementia nonverbal at baseline, pafib on Eliquis, hx DVT/PE, from [facility], sent in for evaluation AMS/unresponsiveness. Eval concerning for hypoxia and septic shock 2/2 urinary tract infection likely d/t known renal calculi.
Patient unable to contribute any hx. All of history from records report. Discussed with patient's legal guardian Juana and confirmed Full Coded status.
# Septic shock Likely secondary to complicated UTI.
#MRSA screen pos
Hypotensive, tachycardic, tachypneic, fevers of 104.3, lactate levels >4.
ICU admit downgraded to tele 08/21
Weaned off pressor support
Chest x-ray showed no evidence for pneumonia, mild cardiomegaly noted.
Urine and blood cx pos for ESBL E. coli, blood culture also pos for ESBL Proteus
Isolation precautions
repeat Blood cultures NGTD
UA greater than 100 WBCs, nitrites and leukocyte positive.
empiric zosyn narrowed to Ertapenem
ID eval appreciated
# Acute hypoxic respiratory failure Resolved
Suspect secondary to sepsis
weaned off 6L NC to room air
# History of bilateral hydroureteronephrosis with right-sided nephrolithiasis-
Obtain CT abdomen and pelvis with and without contrast.
Urology-patient underwent cystoscopy, negative for any urothelial mass.
CT results Staghorn calculus in the right kidney with suspicion for superimposed infection/proximal right ureteritis. No hydronephrosis.
Consult urology appreciated
#paroxysmal afib
# A-fib with RVR
since converted back to NSR
cont Eliquis 5 mg bid (does not meet criteria for renal dosing at this time)
# QTc prolongation on EKG-
QTc at 535.
Avoid QT prolonging agents.
repeat EKG
# Dementia -
Monitor for delirium, and sundowning
restraints prn
Speech eval appreciated soft bite size diet
aspiration precautions
#Hypokalemia
monitor and replete as necessary
# DVT prophylaxis-
Eliquis
# CODE STATUS-
Full code.
Legal Guardian updated 08/21
called 08/22, no answer, message left with brief update and call back number
I spent a total of 45 minutes with the patient or on the floor. More than 50% of this time involved counseling and coordination of care.
Anticipated Discharge: 24 - 48 hours
Subjective/Interval History
-
Date of Service: August 22, 2025
No acute distress, alert, eye tracking, appears comfortable and calm at this time. Attempted interview with [place] [employer] vehicle [employer] interpreter but patient nonverbal (noted in report baseline nonverbal).
Objective Data
-
Labs:
Laboratory Results
08/22/25
04:18
WBC 19.4 H
Hgb 10.5 L
Hct 31.8 L
Plt Count 267 D
Sodium 143
Potassium 3.4 L
Chloride 115 H
Carbon Dioxide 24
BUN 11
Creatinine 0.4 L
Glucose 75
Calcium 7.8 L
Vital Signs:
Vital Signs
Temp Pulse Resp BP Pulse Ox
98.2 F 57 20 124/78 98
08/22/25 07:16 08/22/25 06:00 08/22/25 06:00 08/22/25 04:00 08/22/25 04:00
I&O
08/21/25 08/22/25 08/23/25
06:59 06:59 06:59
Intake Total 2927.6 / 3035.1 1975.0 / 1975.0
Output Total 900 / 900 600 / 600
Balance 2027.6 / 2135.1 1375.0 / 1375.0
[2025-08-22] MEDS: ELIQUIS 5 MG PO ×2 (09:05→20:07)
--- NOTE | 2025-08-22 09:22 | W.PN.ID1 ---
Date of Service
Date of Service: August 22, 2025
Today's Communication
- agree with ertapenem
Assessment / Plan
Complicated UTI due to ESBL organism
Bacteremia
Staghorn calculus
Leukocytosis
- unclear at this time is E coli or Proteus is forming the ESBL - awaiting sensitivities
- follow up repeat blood cultures
- agree with ertapenem
- note no plans for intervention on the staghorn calculus
Chief Complaint
-: UTI
Subjective / Review of Systems
no further fevers
bp stable off of pressors since yesterday am
remains confused - requiring mitts for safety
Vital Signs / Physical Exam
Vital Signs
Vital Signs
Temp Pulse Resp BP Pulse Ox
98.2 F 57 20 124/78 98
08/22/25 07:16 08/22/25 06:00 08/22/25 06:00 08/22/25 04:00 08/22/25 04:00
Physical Exam
Constitutional: No Acute Distress and Chronically Ill
Cardiovascular: Regular Rate and S1/S2; Negative Murmur or Rub
Pulmonary: Clear and Symmetric; Negative Wheezes or Rales
Gastrointestinal: Soft, Non Tender, Non Distended and Normal Bowel Sounds
Skin: Warm and Dry; Negative Rash or Jaundice
Objective Data
Lab Data
Lab Results
08/22/25 04:18
08/22/25 04:18
PT 22.6 Sec (11.4-14.6) H 08/20/25 11:19
INR 1.94 08/20/25 11:19
APTT 37.9 Sec (23.4-35.0) H 08/20/25 11:19
Estimated Creat Clear 61 ml/min 08/22/25 04:18
Lactic Acid 1.3 mmol/L (0.7-2.0) 10/03/25 01:04
Total Bilirubin 0.9 mg/dl (0.2-1.3) 08/21/25 03:25
AST 41 U/L (14-36) H 08/21/25 03:25
ALT 24 U/L (0-35) 08/21/25 03:25
Alkaline Phosphatase 87 U/L (38-126) 08/21/25 03:25
Most recent labs reviewed.
Micro Results:
08/20/25 06:57 Blood Culture - Preliminary
Blood/Venous Escherichia coli
Proteus species
Gram Stain - Preliminary
08/20/25 06:57 Urine Culture - Preliminary
Urine Gram negative bacilli
08/20/25 12:40 MRSA Screen - Final
Nose Staph aureus MRSA
08/20/25 07:11 Blood Culture - Preliminary
Blood/Venous Positive culture in progress
Gram Stain - Preliminary
08/21/25 10:44 Blood Culture - Pending
Blood/Venous
08/21/25 10:34 Blood Culture - Pending
Blood/Venous
08/20/25 06:57 Influenza Types A & B (ALPHONSE) - Final
Nasal Swab Negative for Influenza A & B, NAAT
Negative results must be combined with clinical observations
and patient history.
Nucleic Acid Amplification test (NAAT)performed on the
[employer] platform.
[2025-08-22] MEDS: KCL 270 MEQ IV (10:45)
[2025-08-22] MEDS: LR 1000 IV (10:48)
--- NOTE | 2025-08-22 12:25 | PTCARENOTE ---
pt awake , non verbal , NSR on monitor , BP adequate , continues with IVF , K 3.4 today , pt receiving 40meq of IV potassium , appetite good , needs to be fed , incontinent of urine , continues on IV antibiotics , telemetry status
[2025-08-22] MEDS: INVANZ 60 MG IV (15:02)
[2025-08-22] MEDS: TYLENOL 650 MG PO (15:56)
--- NOTE | 2025-08-22 20:00 | PTCARENOTE ---
Received pt. at 1900. Pt. currently in bed. Drowsy but arousable. Mostly non verbal. Does not appear to be in any pain/discomfort. Afebrile. Heart rhythm currently sinus. History of Afib, on Eliquis. Blood pressure normotensive. Currently on room
air. Lungs sound diminished. PO diet is ordered. Incontinent of urine. Purewick drainage device in place. Skin as documented. Discussed plan of care with patient. Vital signs stable at this time.
[2025-08-23] VITALS (9 sets, daily range): BP systolic 116–162; BP diastolic 70–102; BMI 25.2
[2025-08-23] MEDS: LR 1000 IV (03:03)
[2025-08-23 03:08] LABS: Hematocrit 33.9 % (37.0-47.0); Hemoglobin 11.1 g/dL (12.0-16.0); Mean Corp Hgb Conc. 32.7 g/dL (33.0-37.0); Mean Corpuscular Volume 82.5 fL (81.0-99.0); Platelet Count 290 10^3/uL (130-400); Red Cell Dist. Width 14.8 % (11.5-14.5)
[2025-08-23 03:31] LABS: Blood Urea Nitrogen 11 mg/dl (7-17); Calcium 7.9 mg/dl (8.4-10.2); Carbon Dioxide 25 mmol/L (22-30); Chloride 114 mmol/L (98-107); Estimated Creatinine Clearance 61 ml/min; Glucose 87 mg/dl (70-99); Magnesium 1.6 mg/dl (1.6-2.3); Potassium 3.9 mmol/L (3.5-5.1); Sodium 141 mmol/L (135-145); eGFR > 60.00
[2025-08-23] MEDS: ELIQUIS 5 MG PO ×2 (07:46→20:44)
--- NOTE | 2025-08-23 07:59 | W.PN.HOSP.TC ---
Addendum entered and electronically signed by Nitza Barrios MD 08/23/25 16:05:
Non ischemic myocardial injury
-troponin 0.407 peak trended down
Addendum entered and electronically signed by Nitza Barrios MD 08/23/25 16:03:
Stage 3 Sacral Pressure Injury and Stage 2 Back Pressure Injury, POA
Original Note:
Today's Communication/Plan
-
abx as per ID
IVF completed, tolerating diet
ok to dc hall monitor
Replete Mg
Assessment / Plan
Assessment / Plan
Physical Exam
General: No Apparent Distress and Comfortable
HEENT: PERRLA; No Moist mucous membranes
Respiratory: Clear to auscultation b/l, stable respiratory status on room air
Cardiac: S1/S2, Regular Rhythm and Tachycardia; No Murmur, Rub or Gallop
GI: Soft, Non Tender, Non Distended and Normal Bowel Sounds
Musculoskeletal: No Clubbing, No Cyanosis and No Edema
Skin: Warm and Dry
Neuro: Alert Awake Eye tracking nonverbal
Psych: Calm
79F [place] Dementia nonverbal at baseline, pafib on Eliquis, hx DVT/PE, from [facility], sent in for evaluation AMS/unresponsiveness. Eval concerning for hypoxia and septic shock 2/2 urinary tract infection likely d/t known renal calculi.
Patient unable to contribute any hx. All of history from records report. Discussed with patient's legal guardian Juana and confirmed Full Coded status.
# Septic shock Likely secondary to complicated UTI.
#MRSA screen pos
Hypotensive, tachycardic, tachypneic, fevers of 104.3, lactate levels >4.
ICU admit downgraded to tele 08/21 downgraded to med/surg 08/23
Weaned off pressor support
Chest x-ray showed no evidence for pneumonia, mild cardiomegaly noted.
Urine and blood cx pos for ESBL E. coli, blood culture also pos for ESBL Proteus
Isolation precautions
repeat Blood cultures NGTD
UA greater than 100 WBCs, nitrites and leukocyte positive.
empiric zosyn narrowed to Ertapenem then transitioned to Bactrim and Doxycycline to complete total 14 course 08/20-09/02
ID eval appreciated
# Acute hypoxic respiratory failure Resolved
Suspect secondary to sepsis
weaned off 6L NC to room air
# History of bilateral hydroureteronephrosis with right-sided nephrolithiasis-
Obtain CT abdomen and pelvis with and without contrast.
Urology-patient underwent cystoscopy, negative for any urothelial mass.
CT results Staghorn calculus in the right kidney with suspicion for superimposed infection/proximal right ureteritis. No hydronephrosis.
Consult urology appreciated
#paroxysmal afib
# A-fib with RVR
since converted back to NSR
cont Eliquis 5 mg bid (does not meet criteria for renal dosing at this time)
consistently nsr since spontaneous conversion, ok to dc hall monitor
# QTc prolongation on EKG-
QTc at 535.
Avoid QT prolonging agents.
repeat EKG notes resolution QT prolongation
# Dementia -
Monitor for delirium, and sundowning
restraints prn
Speech eval appreciated soft bite size diet
aspiration precautions
Tolerating diet, IVF support completed
#Hypokalemia
monitor and replete as necessary
#Low thought borderline normal Mg
monitor and replete as necessary
# DVT prophylaxis-
Eliquis
# CODE STATUS-
Full code.
Legal Guardian updated 08/21
called 08/22 08/23, message left with brief update and call back number
I spent a total of 39 minutes with the patient or on the floor. More than 50% of this time involved counseling and coordination of care.
Anticipated Discharge: 24 - 48 hours
Subjective/Interval History
-
Date of Service: August 23, 2025
No acute distress, sitting up comfortably in bed, remains nonverbal likely baseline. Tolerating diet.
Objective Data
-
Labs:
Laboratory Results
08/23/25
02:58
WBC 15.2 H
Hgb 11.1 L
Hct 33.9 L
Plt Count 290
Sodium 141
Potassium 3.9
Chloride 114 H
Carbon Dioxide 25
BUN 11
Creatinine 0.5 L
Glucose 87
Calcium 7.9 L
Vital Signs:
Vital Signs
Temp Pulse Resp BP Pulse Ox
98.1 F 88 16 149/95 98
08/23/25 07:40 08/23/25 06:30 08/23/25 06:30 08/23/25 04:00 08/23/25 00:00
I&O
08/22/25 08/23/25 08/24/25
06:59 06:59 06:59
Intake Total 1975.0 / 2035.0 2710.0 / 2710.0
Output Total 600 / 600 1400 / 1400
Balance 1375.0 / 1435.0 1310.0 / 1310.0
--- NOTE | 2025-08-23 08:40 | W.PN.ID1 ---
Date of Service
Date of Service: August 23, 2025
Today's Communication
transition to bactrim and doxycycline for a 14 day total course 08/20-09/02
Assessment / Plan
Complicated UTI due to ESBL organism
Bacteremia
Staghorn calculus
Leukocytosis
- both the E coli and the Proteus are ESBL formers
- repeat blood cultures no growth to date
- transition to bactrim and doxycycline for a 14 day total course 08/20-09/02
- note no plans for intervention on the staghorn calculus at this time
Chief Complaint
-: UTI
Subjective / Review of Systems
no melo fevers
bp stable
Vital Signs / Physical Exam
Vital Signs
Vital Signs
Temp Pulse Resp BP Pulse Ox
98.1 F 81 25 156/96 98
08/23/25 07:40 08/23/25 08:12 08/23/25 08:12 08/23/25 08:12 08/23/25 00:00
Physical Exam
Constitutional: No Acute Distress
Cardiovascular: Regular Rate and S1/S2; Negative Murmur or Rub
Pulmonary: Clear and Symmetric; Negative Wheezes or Rales
Gastrointestinal: Soft, Non Tender, Non Distended and Normal Bowel Sounds
Skin: Warm and Dry; Negative Rash or Jaundice
Objective Data
Lab Data
Lab Results
08/23/25 02:58
08/23/25 02:58
PT 22.6 Sec (11.4-14.6) H 08/20/25 11:19
INR 1.94 08/20/25 11:19
APTT 37.9 Sec (23.4-35.0) H 08/20/25 11:19
Estimated Creat Clear 61 ml/min 08/23/25 02:58
Lactic Acid 1.3 mmol/L (0.7-2.0) 08/21/25 01:04
Total Bilirubin 0.9 mg/dl (0.2-1.3) 08/21/25 03:25
AST 41 U/L (14-36) H 08/21/25 03:25
ALT 24 U/L (0-35) 08/21/25 03:25
Alkaline Phosphatase 87 U/L (38-126) 08/21/25 03:25
Most recent labs reviewed.
Organism 1 Escherichia coli - ESBL
Organism 2 Proteus Mirabilis-ESBL
EC-ESBL PMIR-ESBL
M.I.C. RX M.I.C. RX
--------- --- --------- ---
Amoxicillin/Potas. Clavulanate 16/8 I <=8/4 S
Ampicillin >16 R >16 R
Ampicillin/Sulbactam 16/8 I <=4/2 S
Aztreonam >16 R <=4 S
Cefazolin >16 R >16 R
Cefepime >16 R 16 R
Ceftazidime 16 R 4 S
Ceftriaxone >2 R >2 R
Ertapenem <=0.5 S <=0.5 S
Ciprofloxacin >2 R >2 R
Gentamicin >8 R <=2 S
Meropenem <=1 S <=1 S
Piperacillin/Tazobactam <=8 S <=8 S
Tetracycline <=4 S >8 R
Tobramycin >8 R <=2 S
Trimethoprim/Sulfamethoxazole >2/38 R <=2/38 S
Micro Results:
08/20/25 06:57 Blood Culture - Final
Blood/Venous Escherichia coli - ESBL
Proteus Mirabilis-ESBL
Gram Stain - Final
08/20/25 07:11 Blood Culture - Final
Blood/Venous Escherichia coli - ESBL
Proteus Mirabilis-ESBL
Gram Stain - Final
08/21/25 10:44 Blood Culture - Preliminary
Blood/Venous No Growth in 24 hours- Final report to follow
08/21/25 10:34 Blood Culture - Preliminary
Blood/Venous No Growth in 24 hours- Final report to follow
08/20/25 06:57 Urine Culture - Final
Urine Escherichia coli - ESBL
08/20/25 12:40 MRSA Screen - Final
Nose Staph aureus MRSA
08/20/25 06:57 Influenza Types A & B (ALPHONSE) - Final
Nasal Swab Negative for Influenza A & B, NAAT
Negative results must be combined with clinical observations
and patient history.
Nucleic Acid Amplification test (NAAT)performed on the
[employer] platform.
--- NOTE | 2025-08-23 08:44 | PTCARENOTE ---
pt awake , non verbal , afebrile , SR on monitor , Bp 149/95 , continues with IVF at 60 ml , tolerating diet , labs noted
[2025-08-23] MEDS: MAGNESIUM SULFATE 50 IV (09:49)
[2025-08-23] MEDS: BACTRIM DS 800 MG/160 MG 1 TABLET PO ×2 (09:49→20:44)
[2025-08-23] MEDS: VIBRAMYCIN 100 MG PO ×2 (09:49→20:44)
--- NOTE | 2025-08-23 10:24 | PTCARENOTE ---
pt downgraded to med/surg status
--- NOTE | 2025-08-23 10:48 | CM ---
CM reviewed chart, pt remains on IV fluid, Ertapenem. Tolerating PO diet.
Discharge plan: Return to [facility] once medically stable.
--- NOTE | 2025-08-23 17:37 | PTCARENOTE ---
pt transferred to room 2237 , report given to receiving RN
[2025-08-23] MEDS: TYLENOL 650 MG PO (18:38)
[2025-08-24 05:26] VITALS: BMI 25.1
[2025-08-24 08:11] VITALS: BP 130/72
[2025-08-24 08:32] LABS: Hematocrit 34.1 % (37.0-47.0); Hemoglobin 11.2 g/dL (12.0-16.0); Mean Corp Hgb Conc. 32.8 g/dL (33.0-37.0); Mean Corpuscular Volume 80.2 fL (81.0-99.0); Platelet Count 282 10^3/uL (130-400); Red Cell Dist. Width 15.1 % (11.5-14.5)
[2025-08-24] MEDS: VIBRAMYCIN 100 MG PO (08:44)
[2025-08-24] MEDS: ELIQUIS 5 MG PO (08:44)
[2025-08-24] MEDS: BACTRIM DS 800 MG/160 MG 1 TABLET PO (08:44)
[2025-08-24 08:49] LABS: Blood Urea Nitrogen 7 mg/dl (7-17); Calcium 7.7 mg/dl (8.4-10.2); Carbon Dioxide 22 mmol/L (22-30); Chloride 111 mmol/L (98-107); Estimated Creatinine Clearance 61 ml/min; Glucose 90 mg/dl (70-99); Magnesium 1.8 mg/dl (1.6-2.3); Potassium 4.0 mmol/L (3.5-5.1); Sodium 137 mmol/L (135-145); eGFR > 60.00
--- NOTE | 2025-08-24 09:48 | W.PN.ID1 ---
Date of Service
Date of Service: August 24, 2025
Today's Communication
- c/w bactrim and doxycycline for a 14 day total course 08/20-09/02
Assessment / Plan
Complicated UTI due to ESBL organism
Bacteremia
Staghorn calculus
Leukocytosis
- both the E coli and the Proteus are ESBL formers
- repeat blood cultures no growth to date
- c/w bactrim and doxycycline for a 14 day total course 08/20-09/02
- note no plans for intervention on the staghorn calculus at this time
Chief Complaint
-: UTI
Subjective / Review of Systems
febrile overnight to 100.6
bp stable
no other events overnight
Vital Signs / Physical Exam
Vital Signs
Vital Signs
Temp Pulse Resp BP Pulse Ox
98.9 F 85 20 130/72 93
08/24/25 08:11 08/24/25 08:11 08/24/25 08:11 08/24/25 08:11 08/24/25 08:11
Physical Exam
Constitutional: No Acute Distress and Comfortable
Cardiovascular: Regular Rate and S1/S2; Negative Murmur or Rub
Pulmonary: Clear and Symmetric; Negative Wheezes or Rales
Gastrointestinal: Soft, Non Tender, Non Distended and Normal Bowel Sounds
Skin: Warm and Dry; Negative Rash or Jaundice
Objective Data
Lab Data
Lab Results
08/24/25 07:48
08/24/25 07:48
PT 22.6 Sec (11.4-14.6) H 08/20/25 11:19
INR 1.94 08/20/25 11:19
APTT 37.9 Sec (23.4-35.0) H 08/20/25 11:19
Estimated Creat Clear 61 ml/min 08/24/25 07:48
Lactic Acid 1.3 mmol/L (0.7-2.0) 08/21/25 01:04
Total Bilirubin 0.9 mg/dl (0.2-1.3) 08/21/25 03:25
AST 41 U/L (14-36) H 08/21/25 03:25
ALT 24 U/L (0-35) 08/21/25 03:25
Alkaline Phosphatase 87 U/L (38-126) 08/21/25 03:25
Most recent labs reviewed.
Micro Results:
08/21/25 10:44 Blood Culture - Preliminary
Blood/Venous No Growth in 48 hours- Final report to follow
08/21/25 10:34 Blood Culture - Preliminary
Blood/Venous No Growth in 48 hours- Final report to follow
08/20/25 06:57 Blood Culture - Final
Blood/Venous Escherichia coli - ESBL
Proteus Mirabilis-ESBL
Gram Stain - Final
08/20/25 07:11 Blood Culture - Final
Blood/Venous Escherichia coli - ESBL
Proteus Mirabilis-ESBL
Gram Stain - Final
08/20/25 06:57 Urine Culture - Final
Urine Escherichia coli - ESBL
08/20/25 12:40 MRSA Screen - Final
Nose Staph aureus MRSA
08/20/25 06:57 Influenza Types A & B (ALPHONSE) - Final
Nasal Swab Negative for Influenza A & B, NAAT
Negative results must be combined with clinical observations
and patient history.
Nucleic Acid Amplification test (NAAT)performed on the
[employer] platform.
--- NOTE | 2025-08-24 10:29 | CM ---
Addendum entered by Carol Hallman RN 08/24/25 12:26:
CM spoke with Juana Johnson who is the patient's guardian. IMM reviewed with Juana.
Original Note:
Reviewed the chart notes. 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 Referral for return to SNF sent in [facility]. CM continues to be available to patient/family and is monitoring medical plan for needs at discharge.
Plan: Discharge back to [facility] once medically stable. No precert required.
Call report to: [phone]
Fax report to: [phone]
Medical necessity and transport forms on the chart.
--- NOTE | 2025-08-24 12:02 | W.PN.HOSP.TC ---
Today's Communication/Plan
-
po abx per ID
Assessment / Plan
Assessment / Plan
Physical Exam
General: No Apparent Distress and Comfortable
HEENT: No Moist mucous membranes
Respiratory: Clear to auscultation b/l, stable respiratory status on room air
Cardiac: S1/S2, Regular Rhythm and Tachycardia; No Murmur, Rub or Gallop
GI: Soft, Non Tender, Non Distended and Normal Bowel Sounds
Musculoskeletal: No Clubbing, No Cyanosis and No Edema
Skin: Warm and Dry
Neuro: Awake, eye tracking nonverbal
Psych: Calm
79F Banglades[place] Dementia nonverbal at baseline, pafib on Eliquis, hx DVT/PE, from [facility], sent in for evaluation AMS/unresponsiveness. Eval concerning for hypoxia and septic shock 2/2 urinary tract infection likely d/t known renal calculi.
Patient unable to contribute any hx. All of history from records report. Discussed with patient's legal guardian Juana and confirmed Full Coded status.
# Septic shock Likely secondary to complicated UTI.
#MRSA screen pos
Hypotensive, tachycardic, tachypneic, fevers of 104.3, lactate levels >4.
ICU admit downgraded to tele 08/21 downgraded to med/surg 08/23
Weaned off pressor support
Chest x-ray showed no evidence for pneumonia, mild cardiomegaly noted.
Urine and blood cx pos for ESBL E. coli, blood culture also pos for ESBL Proteus
Isolation precautions
repeat Blood cultures NGTD
UA greater than 100 WBCs, nitrites and leukocyte positive.
empiric zosyn narrowed to Ertapenem then transitioned to Bactrim and Doxycycline to complete total 14 course 08/20-09/02
ID eval appreciated
# Acute hypoxic respiratory failure Resolved
Suspect secondary to sepsis
weaned off 6L NC to room air
# History of bilateral hydroureteronephrosis with right-sided nephrolithiasis-
Obtain CT abdomen and pelvis with and without contrast.
Urology-patient underwent cystoscopy, negative for any urothelial mass.
CT results Staghorn calculus in the right kidney with suspicion for superimposed infection/proximal right ureteritis. No hydronephrosis.
Consult urology appreciated and no plan for surgical intervention noted
#paroxysmal afib
# A-fib with RVR
since converted back to NSR
cont Eliquis 5 mg bid (does not meet criteria for renal dosing at this time)
consistently nsr since spontaneous conversion, ok to dc test designer
# QTc prolongation on EKG-
QTc at 535.
Avoid QT prolonging agents.
repeat EKG notes resolution QT prolongation
# Dementia -
Monitor for delirium, and sundowning
restraints prn
Speech eval appreciated soft bite size diet
aspiration precautions
Tolerating diet, IVF support completed
#Hypokalemia
monitor and replete as necessary
#Low thought borderline normal Mg
monitor and replete as necessary
# DVT prophylaxis-
Eliquis
# CODE STATUS-
Full code.
[facility]
More than 30 minutes spent in discharge including
Final examination of the patient
Summarizing hospital stay
Instructions for continuing care to all relevant caregivers
Preparation of discharge records, prescriptions, and referral forms
Total time spent (in minutes): 52
Anticipated Discharge: Today
Subjective/Interval History
-
Date of Service: August 24, 2025
Mildly febrile overnight
Blood pressure stable
Objective Data
-
Labs:
Laboratory Results
08/24/25
07:48
WBC 11.3 H
Hgb 11.2 L
Hct 34.1 L
Plt Count 282
Sodium 137
Potassium 4.0
Chloride 111 H
Carbon Dioxide 22
BUN 7
Creatinine 0.5 L
Glucose 90
Calcium 7.7 L
Vital Signs:
Vital Signs
Temp Pulse Resp BP Pulse Ox
98.9 F 85 20 130/72 93
08/24/25 08:11 08/24/25 08:11 08/24/25 08:11 08/24/25 08:11 08/24/25 08:11
I&O
08/23/25 08/24/25 08/25/25
06:59 06:59 06:59
Intake Total 2710.0 / 2770.0 1560 / 1560
Output Total 1400 / 1400 1000 / 1000
Balance 1310.0 / 1370.0 560 / 560
--- NOTE | 2025-08-24 12:03 | W.DCSUMMARY ---
Discharge Summary
Discharge Data
Date of Admission: 08/20/25
Date of Discharge: 08/24/25
-
Pending Results: No
Hospital Course
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 Patient was found to be in septic shock. Patient UA was abnormal and patient was found to urinary tract
infection. 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 Patient started receiving IV fluids and broad-spectrum antibiotics. Patient passed swallow evaluation. Urology evaluated the patient and
stated no acute surgical intervention required for patient with bilateral hydroureteronephrosis with right-sided nephrolithiasis. Lactic acidosis resolved. Acute hypoxic respiratory failure resolved. Blood pressure stabilized. Patient was found
to ESBL urinary tract infection and polymicrobial bacteremia. Patient was transition from IV Zosyn to p.o. Doxy and Bactrim. Patient was tolerating p.o. antibiotic without any difficulty. Tolerating diet with complete assistance. Patient
long-term at [facility] and be discharged back to rehab..
Discharge Plan
-
Patient Disposition: Penitentiary/SNF
Discharge Diagnosis/Procedures: Nonischemic myocardial injury
Septic shock
Complicated urinary tract infection
Acute hypoxic respiratory failure
Prolonged QTc
Hypokalemia
Condition: Fair
Diet: Other diet
Additional Diets: Recommendations:
1. IDDSI 6 Soft and Bite Size, Thins
2. Medications as best tolerated
3. Full supervision/assistance w/ meals
4. Feed only when awake/alert given fluctuations in mental status and PMH of dementia
5. Strategies: Single sips/small bites, slow rate, alternating liquid washes
Activity: With assistance and As tolerated
Driving Restrictions: No driving
Activity Restrictions/Additional Instructions:
Wound Care Instructions
Sacral/buttocks-clean with saline or soap and water, silicone border foam, change q 3 days and prn loosened dressing.
Back ulcer-clean with saline or soap and water, silicone border foam, change q 3 days and prn loosened dressing.
Air mattress
Turning schedule
Soft heel relief boots as tolerated; off load heels off bed with pillows while boots off.
Pressure redistributing chair cushion (i.e. Roho).
Follow up with wound career services assistant or at wound care center call for an appointment.
Referrals:
UNKNOWN - PT DOES,NOT KNOW [Family Provider]
Prescriptions:
New
doxycycline hyclate 100 mg Capsule
100 mg PO Q12 Qty: 19 0RF
sulfamethoxazole-trimethoprim 800-160 mg Tablet
1 tab PO BID Qty: 19 0RF
famotidine [Pepcid] 20 mg tablet
20 mg PO DAILY Qty: 20 0RF
Continued
acetaminophen 325 mg Tablet
650 mg PO Q4HPRN PRN (Reason: fever)
acetaminophen [Tylenol] 325 mg Tablet
650 mg PO Q6HPRN PRN (Reason: mild pain)
Changed
Eliquis 2.5 mg Tablet
5 mg PO BID Qty: 0 0RF
Discharge Orders:
Discharge Patient (As Directed); Ordered 08/24/25
Ordered By: Junior Rodriguez
Discharge Date and Time
Print Language: RUSSIAN
[2025-08-24 13:00] VITALS: BP 133/82
== END 2025-08-24 15:25 | DRG 871 ==
LOC: 2 NORTH 09:19
PROVIDERS: Student in an Organized Health Care Education/Training Program; ADMITTING PHYSICIAN Internal Medicine; ATTENDING PHYSICIAN Hospitalist; CONSULT PHYSICIAN Internal Medicine; CONSULT PHYSICIAN Student in an Organized Health Care Education/Training Program; CONSULT PHYSICIAN Surgery; EMERGENCY PHYSICIAN Emergency Medicine
DX: A41.9 Sepsis, unspecified organism (principal); J96.01 Acute respiratory failure with hypoxia; L89.153 Pressure ulcer of sacral region, stage 3; R65.21 Severe sepsis with septic shock; E87.20 Acidosis, unspecified; J98.11 Atelectasis; I5A Non-ischemic myocardial injury (non-traumatic); N39.0 Urinary tract infection, site not specified; Z16.12 Extended spectrum beta lactamase (ESBL) resistance; I48.0 Paroxysmal atrial fibrillation; R74.01 Elevation of levels of liver transaminase levels; L89.102 Pressure ulcer of unspecified part of back, stage 2; B96.4 Proteus (mirabilis) (morganii) as the cause of diseases classified elsewhere; B96.20 Unspecified Escherichia coli [E. coli] as the cause of diseases classified elsewhere; E87.6 Hypokalemia; N21.0 Calculus in bladder; F03.90 Unspecified dementia, unspecified severity, without behavioral disturbance, psychotic disturbance, mood disturbance, and anxiety; I10 Essential (primary) hypertension; E87.8 Other disorders of electrolyte and fluid balance, not elsewhere classified; I45.10 Unspecified right bundle-branch block; N20.0 Calculus of kidney; Z60.2 Problems related to living alone; Z86.711 Personal history of pulmonary embolism; Z86.718 Personal history of other venous thrombosis and embolism; Z79.01 Long term (current) use of anticoagulants; Z11.52 Encounter for screening for COVID-19; Z78.1 Physical restraint status
CPT/HCPCS: 36600; 71045; 71046; 74178; 80048; 80053; 81003; 81015; 82805; 82962; 83605; 83735; 84100; 84484; 85025; 85027; 85610; 85730; 87040; 87070; 87077; 87086; 87147; 87154; 87186; 87205; 87502; 87811; 92526; 92610; 93005; 94760; 96361; 96374; 99285; J1335; Q9967